=== PATIENT | male | born 1965 | race Caucasian/White ===

== ENCOUNTER 2016-07-25 21:03 | Emergency (ER) | payer OTHER, MEDICARE ==
[~2016-07-25] VITALS: Ht 182.9 cm; Wt 95.3 kg
[2016-07-25 21:10] VITALS: BP 151/89
--- NOTE | 2016-07-25 21:35 | ED SKIN/ALLERGY COMPLAINT ---
See Addendum History of Present Illness General Chief Complaint: Laceration Procedure Stated Complaint: LEFT HAND LAC Source: patient Exam Limitations: no limitations Vital Signs & Intake/Output Vital Signs & Intake/Output Vital Signs Date Time Temp Pulse Resp B/P Pulse O2 O2 Flow FiO2 Ox Delivery Rate 07/25 2109 99.4 96 18 151/89 95 Room Air Allergies Coded Allergies: NO KNOWN ALLERGIES (11/03/12) Reconcile Medications Cephalexin (Keflex) 500 MG CAPSULE 1 CAP PO TID laceration Triage Note: RECEIVED 51 YO MALE C/O LACERATION TO TOP OF LEFT HAND NEAR INDEX FINGER KNUCKLE, OCCURED A FEW HOURS AGO CUTTING BOXES. NO ACTIVE BLEEDING NOTED. Triage Nurses Notes Reviewed? yes HPI: This patient is a 51-year-old male with past medical history including hyperlipidemia who presented to the emergency department today for evaluation of a laceration to the knuckle of his left index finger. The patient reported that he was cutting boxes when this occurred. He reported that there was bleeding initially, but it subsided. The patient is unsure of his last tetanus immunization. He denied any numbness or tingling. He reported a mild amount of pain over the area of the laceration which is nonradiating and approximately a 4 out of 10. The patient applied skin glue to the wound after it happened approximately 5 hours ago. Past History Travel History Traveled to [place] past 21 day No Medical History Any Pertinent Medical History? see below for history Neurological: NONE EENT: NONE Cardiovascular: hyperlipidemia Respiratory: asthma Gastrointestinal: NONE Hepatic: NONE Renal: NONE Musculoskeletal: NONE Psychiatric: anxiety, depression Endocrine: NONE Blood Disorders: NONE Cancer(s): NONE Surgical History Surgical History: non-contributory Psychosocial History What is your primary language Nepali Tobacco Use: Never used Family History Hx Contributory? No Review of Systems Review of Systems Constitutional: Reports: no symptoms. EENTM: Reports: no symptoms. Respiratory: Reports: no symptoms. Cardiovascular: Reports: no symptoms. GI: Reports: no symptoms. Musculoskeletal: Reports: no symptoms. Skin: Reports: see HPI. Neurological/Psychological: Reports: no symptoms. All Other Systems: Reviewed and Negative Physical Exam Physical Exam General Appearance: well developed/nourished, no apparent distress, alert, awake Comments: Well-developed well-nourished person in no acute distress HEENT: Head normocephalic, moist mucous membranes Neck: Supple, no lymphadenopathy Back: Normal gait Respiratory: No respiratory distress. Speaking in full sentences Extremities: No edema, full range of motion Neuro: Alert and oriented x3 Psych: Mood affect normal, normal memory normal judgment. Skin: Warm and dry, no rash on exposed skin. Approximately 1 cm in length, linear laceration noted to the dorsal aspect of the left hand over the knuckle of the second digit with no active bleeding and skin glue intact over the wound. No tenderness to palpation around the wound site. Full range of motion of the digits. Capillary refill less than 2 seconds. Radial pulse 2+ and strong Progress Differential Diagnosis: abscess/cellulitis, skin laceration, tendon injury Plan of Care: Current Medications Sig/Liane Start time Last Medication Dose Stop Time Status Admin Tetanus/Diphtheria 0.5 ML ONCE ONE 07/25 2144 UNVr Toxoids Adsorbed 07/25 2145 (Decavac) Departure Departure Disposition: HOME OR SELF CARE Condition: Stable Clinical Impression Primary Impression: Laceration Referrals: MARGI MELVIN MD (PCP/Family) Additional Instructions: Keep the wound site clean and dry. Let the skin glue fall off on its own. Take the antibiotic as prescribed and for the full duration. Use the splint provided to here in the emergency department to limit mobility of your finger to prevent opening of the wound. Follow-up with your primary care physician. Return for any worsening symptoms or concerns. Departure Forms: Customer Survey General Discharge Information Prescriptions: Current Visit Scripts Cephalexin (Keflex) 1 CAP PO TID #15 CAP
[2016-07-25] MEDS ORDERED: KEFLEX500 M1 PO (21:41)
== END 2016-07-25 21:59 ==
LOC: ERH 21:03
DX: S61.412A Laceration without foreign body of left hand, initial encounter (principal); W45.8XXA Other foreign body or object entering through skin, initial encounter; Y92.9 Unspecified place or not applicable; Y93.9 Activity, unspecified
CPT/HCPCS: 90471; 90714